=== PATIENT | female | born 1950 | race Caucasian/White ===

== ENCOUNTER 2017-02-28 07:19 | Day surgery (SDC) | payer MEDICARE, BC ==
[~2017-02-28 07:19] MED LIST: BUPIVACAINE HCL 0.5% MPF 10 ML SOL ONE; CEFAZOLIN SODIUM 1 GM PDS ONE; FENTANYL 100MCG/2ML SOL ONE; LIDOCAINE HCL 1% MPF SOL ONE; LIDOCAINE HCL 2% MPF SOL ONE; MIDAZOLAM 2 MG/2 ML SOL ONE; ONDANSETRON HCL 4 MG/2 ML SOL ONE; PROPOFOL 500 MG/50 ML EMU IV ONE
[2017-02-28] MEDS ORDERED: BACITRACIN 500 U/GM OIN TOP ONE (07:43)
[2017-02-28 08:23] VITALS: TEMP 96.6
[2017-02-28] MEDS ORDERED: APAP/HYDROCODONE 325/5 TAB ONE (09:27)
[2017-02-28 09:38] VITALS: BP 110/75; PULSE 61; RESP 14; O2SAT 99
== END 2017-02-28 10:04 | disposition home or self-care (01) | DRG 563 ==
LOC: SURG 07:19
PROVIDERS: ATTEND Orthopaedic Surgery
DX: S92.412A Displaced fracture of proximal phalanx of left great toe, initial encounter for closed fracture (principal)
CPT/HCPCS: 73660; 76000; J0690; J2250; J2405; J3010; L3260; A6402; J2001; J2704

== ENCOUNTER 2017-03-10 14:55 | Outpatient (CLI) | payer MEDICARE, BC ==
[2017-02-28 09:38] VITALS: O2SAT 99
== END 2017-03-10 14:56 | disposition home or self-care (01) | DRG 561 ==
LOC: CONVCARE 14:55
PROVIDERS: ATTEND Orthopaedic Surgery
DX: S92.412D Displaced fracture of proximal phalanx of left great toe, subsequent encounter for fracture with routine healing (principal)
CPT/HCPCS: 73660

== ENCOUNTER 2017-03-27 07:56 | Outpatient (CLI) | payer MEDICARE, BC ==
[2017-02-28 09:38] VITALS: O2SAT 99
== END 2017-03-27 07:57 | disposition home or self-care (01) | DRG 561 ==
LOC: CONVCARE 07:56
PROVIDERS: ATTEND Orthopaedic Surgery
DX: S92.412D Displaced fracture of proximal phalanx of left great toe, subsequent encounter for fracture with routine healing (principal)
CPT/HCPCS: 73660

== ENCOUNTER 2017-04-17 12:55 | Outpatient (CLI) | payer MEDICARE, BC ==
[2017-02-28 09:38] VITALS: O2SAT 99
== END 2017-04-17 12:56 | disposition home or self-care (01) | DRG 561 ==
LOC: CONVCARE 12:55
PROVIDERS: ATTEND Orthopaedic Surgery
DX: S92.412D Displaced fracture of proximal phalanx of left great toe, subsequent encounter for fracture with routine healing (principal); M25.562 Pain in left knee
CPT/HCPCS: 73660

== ENCOUNTER 2018-08-19 07:44 | Day surgery (SDC) | payer BC ==
[~2018-08-19 07:44] MED LIST changes: -BUPIVACAINE HCL 0.5% MPF 10 ML SOL ONE; -CEFAZOLIN SODIUM 1 GM PDS ONE; -FENTANYL 100MCG/2ML SOL ONE; +LIDOCAINE HCL 1% MPF 30 SOL ONE; -LIDOCAINE HCL 1% MPF SOL ONE; -LIDOCAINE HCL 2% MPF SOL ONE; -MIDAZOLAM 2 MG/2 ML SOL ONE; -ONDANSETRON HCL 4 MG/2 ML SOL ONE
[2018-08-19 08:02] VITALS: RESP 16
[2018-08-19 09:25] VITALS: TEMP 98.4
[2018-08-19 09:50] VITALS: BP 112/74; PULSE 75; O2SAT 98
[2018-08-19] MEDS ORDERED: ONDANSETRON HCL 4 MG/2 ML SOL ONE (10:02)
== END 2018-08-19 10:10 | disposition home or self-care (01) | DRG 392 ==
LOC: SURG 07:44
PROVIDERS: ATTEND Surgery
DX: R19.5 Other fecal abnormalities (principal); D12.2 Benign neoplasm of ascending colon; D12.5 Benign neoplasm of sigmoid colon; D12.3 Benign neoplasm of transverse colon
CPT/HCPCS: J2405; J2001; J2704